=== PATIENT | male | born 1995 | race Caucasian/White ===

== ENCOUNTER 2024-08-08 19:26 | Emergency (ER) | payer OTHER, SELFPAY ==
[2024-08-08 19:47] VITALS: BP 105/60; PULSE 103; RESP 18; TEMP 36.9; O2SAT 96; BMI 20.7
--- NOTE | 2024-08-08 20:06 | ED.ABDPAIN ---
HPI - Abdominal Pain General Time Seen by Provider: 20:06 Date Seen: 08/08/24 Chief Complaint: Abdominal Pain Stated Complaint: abdominal pain/hernia Time Seen by Provider: 08/08/24 20:05 Source: patient and RN notes reviewed Mode of arrival: ambulatory Limitations: no limitations History of Present Illness HPI narrative: This 28-year-old male is coming in with severe abdominal pain. He was doing triceps pull downs, was doing his 3rd set when he felt a popping sensation in his right upper abdomen, radiated down into the abdomen. He feels pain deep into the abdomen as well now. When he stands up, pain radiates into his rectum. He feels tight through his upper abdomen. He is actually hungry, has not eaten dinner. No nausea vomiting, no GI symptoms proceeding this. He has not noted any urinary symptoms or bowel problems proceeding this. 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 He does work out regularly. He is not feeling any bulging in the groin but pain from the upper abdomen is radiating throughout. He is not on any blood thinners. He did take a pre workout supplement, does do this a couple times a week. He will drink alcohol, 1-2 servings with his nightly meal but not every night. He is trying to cut down on vaping. Occasional marijuana use but no other illicit substances. He is never had any abdominal surgery. MD elicited complaint: abdominal pain Related Data Home Medications ?Medication ?Instructions ?Recorded ?Confirmed No Known Home Medications 08/08/24 08/08/24 Allergies Allergy/AdvReac Type Severity Reaction Status Date / Time No Known Drug Allergies Allergy Verified 08/08/24 21:22 Review of Systems Status of ROS Reports: 6 or more systems reviewed and unremarkable except as noted in History and below [facility] Social History Smoking Status: Current every day smoker How often do you have a drink containing alcohol: 2-3 times a week How often do you have six or more drinks on one occasion: Never AUDIT-C Alcohol total score: 3 Non-prescribed substance use: marijuana (any form) Exam Const: Vital Signs, click to edit/add: Vital Signs - 24 hr 08/08/24 19:47 08/08/24 21:19 Temperature 98.5 F Pulse Rate [Pulse Oximeter] 103 H Respiratory Rate 18 Blood Pressure [Ri ght Upper Arm] 105/60 Pulse Oximetry 96 96 Oxygen Delivery Me thod Room Air This 28-year-old male is alert, interactive, no apparent distress. Lying flat on the ER bed. When ask him to sit up at all, causes him excruciating pain in the right upper abdomen and radiates downward. He states he feels a bulge in the right upper abdomen but I cannot say that I a see this myself. He has exquisite tenderness in the right upper quadrant when I palpate, does generalize into the abdomen. There is no new inguinal masses or bulging noted. Bowel sounds are present. Is having some guarding in the right upper quadrant on palpation but no rebound. Do not appreciate any organomegaly anywhere. Pupils equal round reactive, sclerae clear, extraocular muscles intact. Face atraumatic. Lungs are clear with good air entry anteriorly and on the sides, no wheezing or crackles, no tachypnea. CV regular rate and rhythm, no murmur, normal S1-S2, no S3-S4. Documenting provider has reviewed patient's vital signs: yes Course Course ED Course: This 28-year-old male is presenting with abdominal pain after lifting weights, presentation is quite severe in beyond that of what I would typically suspect with muscle strain from weightlifting. We did discuss that there can be muscular issues with weightlifting, he would be stabilizing with his core muscles which does include the abdominal muscles in this type of exercise. Do think we should get some blood work and look at a CK. He is quite worried about hernia. We will proceed with CT imaging, did review with him that we do need IV contrast with this and thus an IV will be placed. We will try some IV Toradol for pain management for him. He understands were going to keep him NPO at this time but hopefully he will be able to eat and drink shortly. Reevaluation(s) Time of Reevaluation #1: 22:48 Reevaluation #1: Reviewed with patient this CT findings of intussusception. He states he is feeling completely better. He states while lying here waiting, he was rubbing his lower chest and upper abdominal wall. When he was doing this he felt a pop and felt all the pain go away. He notes that the pain really felt like it was everywhere in his abdomen when this 1st happened. He did feel it in the upper abdomen, I felt like he was most tender in the right upper quadrant but he states he really was feeling it everywhere. With walking the pain would radiate towards his rectum. Discussed with patient that this certainly could happen again. I am not aware that this happens because of straining, this could have just been incidental. Patient is adamant that he does not want to stay here tonight. He reassures me that he will return with recurrent pain. He does need further study with upper GI with small-bowel follow-through but this can be ordered outpatient. As long as he understands that he needs to return with recurrent issues, I am fine with discharge tonight. Patient is able to sit up, move around, has no abdominal symptoms with any of this as he was having before. Consultations Consultation #1: Did discuss with our general surgeon Dr. Gerard. If patient is still having pain, plan will be for admission and upper GI with small-bowel follow-through in the morning. Otherwise, if patient is feeling better, could do this outpatient. Time: 10:30 Vital Signs Vital signs: Initial Vital Signs Temperature 98.5 F 08/08/24 19:47 Temperature Source Temporal Artery Scan 08/08/24 19:47 Pulse Rate 103 H 08/08/24 19:47 Respiratory Rate 18 08/08/24 19:47 Blood Pressure 105/60 08/08/24 19:47 Blood Pressure Mean 75 08/08/24 19:47 Blood Pressure Position Sitting 08/08/24 19:47 Pulse Oximetry 96 08/08/24 19:47 Oxygen Delivery Method Room Air 08/08/24 19:47 Vital Signs Temperature 98.5 F 08/08/24 19:47 Pulse Rate 103 H 08/08/24 19:47 Respiratory Rate 18 08/08/24 19:47 Blood Pressure 105/60 08/08/24 19:47 Pulse Oximetry 96 08/08/24 19:47 Oxygen Delivery Method Room Air 08/08/24 19:47 Temperature 98.5 F 08/08/24 19:47 Pulse Rate 103 H 08/08/24 19:47 Respiratory Rate 18 08/08/24 19:47 Blood Pressure 105/60 08/08/24 19:47 Pulse Oximetry 96 08/08/24 21:19 Oxygen Delivery Method Room Air 08/08/24 19:47 Medications Administered Medications: Discontinued Medications Generic Name Dose Route Start Last Admin Trade Name Freq PRN Reason Stop Dose Admin Sodium Chloride 1,000 mls @ 1,000 mls/hr 08/08/24 20:25 08/08/24 21:11 0.9 % Sodium Chloride 1000 Ml IV 08/08/24 21:24 Infused .Q1H MIRLANDE Infusion Ketorolac Tromethamine 15 mg 08/08/24 20:25 08/08/24 20:35 Ketorolac 15 Mg/Ml Inj IVP 08/08/24 20:26 15 mg ONCE ONE Administration MDM - Abdominal Pain Lab Data Attestation: I reviewed the patient's lab results. Labs: Lab Results 08/08/24 Range/Units 20:28 WBC 11.33 H (4.50-11.00) K/uL RBC 4.27 L (4.30-5.90) m/uL Hgb 13.4 L (13.5-17.5) gm/dL Hct 38.8 (37.0-53.0) % MCV 91 (80-100) fL MCH 31 (26-34) pg MCHC 35 (32-36) gm/dL RDW Coeff of Branden 11.7 (11.5-15.5) % Plt Count 213 (140-440) K/uL Neut % (Auto) 74.9 H (42.0-72.0) % Lymph % (Auto) 15.1 L (20-44) % [place] % (Auto) 8.8 (0.0-11.0) % Eos % (Auto) 0.7 (0.0-7.0) % Baso % (Auto) 0.3 (0.0-3.0) % Neut # (Auto) 8.50 H (1.7-7.0) K/uL Lymph # (Auto) 1.70 (0.90-2.90) K/uL [place] # (Auto) 1.00 H (0.00-0.90) K/UL Eos # (Auto) 0.10 (0.00-0.50) K/uL Baso # (Auto) 0.00 (0.00-0.30) K/uL Abs Immat Gran (auto) 0.00 (0.00-0.30) K/uL Imm/Tot Granulo (auto) 0.2 % Sodium 132 L (135-149) mmol/L Potassium 3.8 (3.6-5.1) mmol/L Chloride 99 (96-114) mmol/L Carbon Dioxide 27 (20-32) mmol/L Anion Gap 6 L (7-15) mEq/L BUN 19 (5-24) mg/dL Creatinine 0.8 (0.5-1.5) mg/dL Estimated Creat Clear 122.09 Estimated GFR 125 ml/min Glucose 90 (60-115) mg/dL Lactate 0.9 (0.5-1.9) mmol/L Calcium 8.8 (8.4-10.6) mg/dL Total Bilirubin 0.4 (0.1-1.5) mg/dL AST 34 (12-35) U/L ALT 24 (4-50) U/L Alkaline Phosphatase 59 (40-150) U/L Total Creatine Kinase 314 H (54-186) U/L C-Reactive Protein < 0.5 L (0.5-1.0) mg/dL Total Protein 6.4 (6.0-8.3) g/dL Albumin 4.1 (3.3-5.0) g/dL Lipase 77 (23-300) U/L Imaging Data CT scan - abdomen: Attestation: I have reviewed the pertinent imaging results. Radiologist's impression: Patient: PATRIC WALKER Facility:?[facility] Patient ID:?[id number] Site Patient ID:?[id number]. Site :?[id number] Study:?CT-Abdomen/Pelvis W/ 67CC ISOVUE 370-08/08/2024 9:25:16 PM Ordering Physician:?Eugene Smith Final Report: INDICATION: Right upper quadrant abdominal pain, radiates towards rectum TECHNIQUE: CT Abdomen and pelvis with i.v. contrast. Coronal and sagittal reformats were obtained. CONTRAST: 67 mL Isovue 370 COMPARISON: 03/24/2019 FINDINGS: Lower chest: Unremarkable. Liver: Unremarkable. Spleen: Unremarkable. Pancreas: Unremarkable. Gallbladder: Unremarkable. Kidney: Unremarkable. No kidney or ureteral stones or obstruction seen. Adrenal: Unremarkable. Bowel: There is a small bowel-small bowel intussusception present in the left upper quadrant measuring 3 cm in length with no bowel obstruction. The appendix cannot be identified but there are no inflammatory changes noted in the right lower quadrant. Vascular: Unremarkable. Lymph: Unremarkable. Peritoneum: Unremarkable. No pneumoperitoneum is seen. No significant ascites is noted. Pelvis: Unremarkable. Soft tissue: Unremarkable. Bone: Unremarkable for age. IMPRESSION: 1. There is a small bowel-small bowel intussusception present in the left upper quadrant measuring 3 cm in length with no bowel obstruction. This can be a transient finding and can be associated with celiac sprue. Dictated by Tony Roberson MD @ 08/08/2024 10:23:25 PM Please note that all CT scans at this facility use dose modulation, iterative reconstruction, and/or weight-based dosing when appropriate to reduce radiation dose to as low as reasonably achievable. Dictated by: Tony Roberson MD @ 08/08/2024 22:23:39 (Electronic Signature) Discharge Plan Discharge Clinical Impression: Intussusception of small bowel Patient Disposition: Home, Self-Care Condition: Stable Instructions: Intussusception in Children (ED) Additional Instructions: I do not have discharge information in adults for intussusception, can look on the Internet for this but did provide a basic handout in children. You need to follow up in clinic, a upper GI with small-bowel follow-through is recommended to be done outpatient. You definitely need to seek re-evaluation if you have recurrent symptoms like tonight. Activity Level: Activity as Tolerated Discharge Diet: Regular Prescriptions: No Action No Known Home Medications Follow Up/Referrals: Provider,Not a Local [Primary Care Provider] - Stand Alone Forms: Cucin[employer] Info Instructions
--- NOTE | 2024-08-08 20:16 | CRLHL7_ITS ---
For Patients: As a result of the Cures Act, medical imaging exams and procedure reports are released immediately into your electronic medical record. You may view this report before your referring provider. If you have questions, please contact your health care provider. INDICATION: Right upper quadrant abdominal pain, radiates towards rectum TECHNIQUE: CT Abdomen and pelvis with i.v. contrast. Coronal and sagittal reformats were obtained. CONTRAST: 67 mL Isovue 370 COMPARISON: 03/24/2019 FINDINGS: Lower chest: Unremarkable. Liver: Unremarkable. Spleen: Unremarkable. Pancreas: Unremarkable. Gallbladder: Unremarkable. Kidney: Unremarkable. No kidney or ureteral stones or obstruction seen. Adrenal: Unremarkable. Bowel: There is a small bowel-small bowel intussusception present in the left upper quadrant measuring 3 cm in length with no bowel obstruction. The appendix cannot be identified but there are no inflammatory changes noted in the right lower quadrant. Vascular: Unremarkable. Lymph: Unremarkable. Peritoneum: Unremarkable. No pneumoperitoneum is seen. No significant ascites is noted. Pelvis: Unremarkable. Soft tissue: Unremarkable. Bone: Unremarkable for age. IMPRESSION: 1. There is a small bowel-small bowel intussusception present in the left upper quadrant measuring 3 cm in length with no bowel obstruction. This can be a transient finding and can be associated with celiac sprue. Dictated by Tony Roberson MD @ 08/08/2024 10:23:25 PM Please note that all CT scans at this facility use dose modulation, iterative reconstruction, and/or weight-based dosing when appropriate to reduce radiation dose to as low as reasonably achievable. Dictated by: Tony Roberson MD @ 08/08/2024 22:23:39 (Electronically Signed)
[2024-08-08] MEDS: 0.9 % SODIUM CHLORIDE 1000 ml 1,000 ML IV (20:34)
[2024-08-08] MEDS: KETOROLAC 15 MG/ML inj IVP (20:35)
[2024-08-08 20:36] LABS: Basophils Percent Auto 0.3 % (0.0-3.0); Eosinophils Percent Auto 0.7 % (0.0-7.0); Hematocrit 38.8 % (37.0-53.0); Hemoglobin* 13.4 gm/dL (13.5-17.5); Immature Granulocytes Pct Auto 0.2 %; Lymphocytes Percent Auto 15.1 % (20-44); Mean Corpuscular HGB Conc 35 gm/dL (32-36); Mean Corpuscular Hemoglobin 31 pg (26-34); Mean Corpuscular Volume 91 fL (80-100); Monocytes Percent Auto 8.8 % (0.0-11.0); Neutrophils Percent Auto 74.9 % (42.0-72.0); Platelet Count* 213 K/uL (140-440); RDW Coefficient of Variation % 11.7 % (11.5-15.5); Red Blood Count 4.27 m/uL (4.30-5.90); White Blood Count* 11.33 K/uL (4.50-11.00)
[2024-08-08 20:42] LABS: Slide Review Reflex No
[2024-08-08 20:44] LABS: Lactate* 0.9 mmol/L (0.5-1.9)
[2024-08-08 20:59] LABS: Albumin* 4.1 g/dL (3.3-5.0); Chloride* 99 mmol/L (96-114)
[2024-08-08 21:00] LABS: Potassium* 3.8 mmol/L (3.6-5.1); Sodium* 132 mmol/L (135-149)
[2024-08-08 21:02] LABS: Creatinine* 0.8 mg/dL (0.5-1.5); Est. Creatinine Clearance* 122.09; Estimated Glomerular Filt Rate 125 ml/min
[2024-08-08 21:03] LABS: Alanine Aminotransferase* 24 U/L (4-50); Alkaline Phosphatase* 59 U/L (40-150); Anion Gap 6 mEq/L (7-15); Aspartate Amino Transferase* 34 U/L (12-35); Bilirubin Total* 0.4 mg/dL (0.1-1.5); Blood Urea Nitrogen* 19 mg/dL (5-24); Calcium* 8.8 mg/dL (8.4-10.6); Carbon Dioxide* 27 mmol/L (20-32); Creatine Kinase* 314 U/L (54-186); Glucose* 90 mg/dL (60-115); Lipase* 77 U/L (23-300); Total Protein* 6.4 g/dL (6.0-8.3)
[2024-08-08 21:09] LABS: C Reactive Protein* < 0.5 mg/dL (0.5-1.0)
[2024-08-08 21:19] VITALS: O2SAT 96
== END 2024-08-08 23:09 | disposition home or self-care (01) ==
PROVIDERS: Emergency Provider Family Medicine
DX: K56.1 Intussusception (principal)
CPT/HCPCS: 36415; 74177; 80053; 82550; 83605; 83690; 85025; 86140; 94761; 96374; 99284; J1885; J7030; Q9967